=== PATIENT | male | born 1990 | race Caucasian/White ===

== ENCOUNTER 2018-02-26 08:04 | Day surgery (SDC) | payer OTHER ==
[2018-02-26] MEDS ORDERED: LIDOCAINE 4% SOLUTION 50 ML BTL (09:20)
[2018-02-26] MEDS ORDERED: FENTAnyl 50 MCG/ML VIAL (10:08)
[2018-02-26] MEDS ORDERED: MIDAZOLAM 1 MG/ML 2 ML INJ ×3 (10:08)
== END 2018-02-26 12:06 | disposition home or self-care (01) ==
LOC: GIL 08:04
DX: K64.8 Other hemorrhoids (principal); K64.4 Residual hemorrhoidal skin tags; K29.70 Gastritis, unspecified, without bleeding; K21.0 Gastro-esophageal reflux disease with esophagitis
CPT/HCPCS: 43239; 88305; 88312